=== PATIENT | female | born 1965 | race Asian ===

== ENCOUNTER 2016-05-30 21:11 | Emergency (ER) | payer OTHER ==
[2016-05-30] MEDS ORDERED: IOPAMIDOL-300 100 ML VIAL IVP ONE (22:18)
[2016-05-30] MEDS ORDERED: SULFAM/TRIM 800/160 Prepack 2 PO ONE ×2 (23:13→23:16)
[2016-05-30] MEDS ORDERED: SULFAMETH/TRIMETH DS 800/160 MG TABLET PO ONE (23:14)
== END 2016-05-30 23:32 | disposition home or self-care (01) ==
DX: I10 Essential (primary) hypertension (principal); I77.810 Thoracic aortic ectasia; N30.00 Acute cystitis without hematuria; E11.9 Type 2 diabetes mellitus without complications
CPT/HCPCS: 36415; 71275; 80053; 81001; 83690; 84484; 85025; 87086; 93005; 93010; 99284; Q9967

== ENCOUNTER 2017-10-21 07:42 | Outpatient (CLI) | payer OTHER ==
--- NOTE | 2017-10-23 09:20 | MRI Report ---
EXAM: MRI CERVICAL SPINE WITHOUT CONTRAST EXAM DATE: 10/21/2017 08:17 AM. CLINICAL HISTORY: Cervicalgia. COMPARISONS: None. TECHNIQUE: Multiplanar, multisequence T1-weighted and fluid-sensitive sequences of the cervical spine without contrast. Other: None. FINDINGS: There is straightening of the normal cervical lordosis. There is a mild degree desiccation of the dis k spaces from C2-C3 through T2-T3. There is a mild decrease in intervertebral disk space height at C4 -C5, C5-C6. There is a mild degree of endplate spondylosis. There are normal signal intensities demonstrated throughout the cervical spinal cord. The craniocervi davey junction is normal. C2-C3: There is a mild degree of left facet arthropathy. There is mild narrowing of the left neural f oramen. There is no significant disk bulge or central canal stenosis. C3-C4: There is a small disk osteophyte complex producing a mild central canal stenosis. The uncovert ebral hypertrophy produces moderate bilateral foraminal stenoses. C4-C5: There is no significant disk bulge, central or foraminal stenosis. The facets are normal. C5-C6: There is a small disk osteophyte complex producing a mild central canal stenosis. The uncovert ebral hypertrophy produces mild bilateral foraminal stenoses. The facets are normal. C6-C7: There is minimal central protrusion of the disk producing a minimal central canal stenosis. Th e remainder of the level is normal. C7-T1: There is a mild degree of left facet arthropathy. There is no significant disk bulge or centra l canal stenosis. There is mild narrowing of the left neural foramen. IMPRESSION: 1. There is a mild central canal stenosis from a small disk osteophyte complex at C3-C4. 2. There is a small disk osteophyte complex at C5-C6 producing a mild central canal stenosis. 3. There is a minimal central canal stenosis from a minimal central protrusion of the disk at C6-C7. Referring Provider Line: [phone] SITE ID: [id number]
== END 2017-10-21 07:43 | disposition home or self-care (01) ==
LOC: DI 07:42
PROVIDERS: ATTEND Family Medicine
DX: M50.223 Other cervical disc displacement at C6-C7 level (principal); M47.892 Other spondylosis, cervical region; M50.31 Other cervical disc degeneration, high cervical region; M48.02 Spinal stenosis, cervical region
CPT/HCPCS: 72141

== ENCOUNTER 2019-05-04 08:51 | Emergency (ER) | payer OTHER ==
[2019-05-04] MEDS ORDERED: DEXAMETHASONE 10 MG/ML VIAL PO STA ×2 (09:53→09:56)
[2019-05-04] MEDS ORDERED: CHERRY SYRUP 10 ML UDC PO ONE ×2 (09:53→09:56)
--- NOTE | 2019-05-04 09:56 | ED Physician Documentation ---
PD HPI URI - Stated complaint Stated Complaint: COUGH - Chief complaint Chief Complaint: Heent - History obtained from History obtained from: Patient - History of Present Illness Timing - onset: How many weeks ago (1) Timing duration: Weeks (1) Timing details: Abrupt onset, Still present Associated symptoms: Fever, Ear pain, Nasal congestion, Rhinorrhea, Sinus pain, Sore throat, Productive cough Improves by: Rest, Medication Similar symptoms before: Diagnosis (OM) Recently seen: Clinic - Additional information Additional information: 54-year-old female is developed a cough and congestion 1 week ago she is developing a cough with brown sputum she has had a rupture of the right TM she has been into see her primary care doctor and she has persistence of symptoms and now has pain into the left ear as well. She has had this previously she is had ear infection and sinus infection. She has not had to use inhaler. Review of Systems Constitutional: reports: Fever Eyes: denies: Decreased vision Ears: reports: Ear pain, Drainage/discharge Nose: reports: Rhinorrhea / runny nose, Congestion Throat: reports: Sore throat Cardiac: denies: Chest pain / pressure, Palpitations Respiratory: reports: Cough GI: denies: Vomiting PD PAST MEDICAL HISTORY - Past Medical History Cardiovascular: Hypertension Respiratory: None Neuro: None Endocrine/Autoimmune: None GI: GERD [employer]ULPAK DRIVER: None : None HEENT: None Psych: None Musculoskeletal: Chronic back pain Derm: None - Past Surgical History Past Surgical History: No - Present Medications Home Medications: Ambulatory Orders Medication Instructions Recorded Confirmed Zolpidem [Ambien] 5 mg PO HS PRN 12/11/12 05/04/19 Amox/Clav 875/125 [Augmentin] 1 each PO Q12H #20 tablet 05/04/19 Cholecalciferol (Vitamin D3) 2,000 unit PO DAILY 05/04/19 05/04/19 [Vitamin D3] Lactobacillus Acidophilus 1 tab ORAL DAILY 05/04/19 05/04/19 [Probiotic Acidophilus] Telmisartan [Micardis] 40 mg PO DAILY 05/04/19 05/04/19 - Allergies Allergies/Adverse Reactions: Allergies Allergy/AdvReac Type Severity Reaction Status Date / Time No Known Drug Allergies Allergy Verified 05/04/19 08:57 - Social History Does the pt smoke?: No Smoking Status: Never smoker Does the pt drink ETOH?: No Does the pt have substance abuse?: No - Immunizations Immunizations are current?: Yes - POLST Patient has POLST: No PD ED PE NORMAL - Vitals Vital signs reviewed: Yes (hyertensive mild ) - General General: Alert and oriented X 3, No acute distress, Well developed/nourished - HEENT HEENT: Atraumatic, PERRL, EOMI, Moist mucous membranes, Other (The right TM appears to have had a rupture that appears now sealed and there is some blood clot on the lower portion of the TM. The TM is inflamed with distortion of landmarks. 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, No motor deficit, No sensory deficit, Normal speech Eye Opening: Spontaneous Motor: Obeys Commands Verbal: Oriented GCS Score: 15 - Psych Psych: Normal mood, Normal affect Results - Vitals Vitals: Vital Signs - 24 hr 05/04/19 05/04/19 08:57 09:33 Temperature 37.2 C 37.3 C Heart Rate 80 71 Respiratory 18 18 Rate Blood Pressure 139/85 H 128/93 H O2 Saturation 96 98 Oxygen O2 Source Room air PD MEDICAL DECISION MAKING - ED course Complexity details: reviewed old records, considered differential, d/w patient, d/w family ED course: 54-year-old female with cough and congestion has otitis bilaterally she is had a rupture on the right she now has marked inflammation on the left she is administered dexamethasone 10 mg orally and we will place her on a course of Augmentin. Departure - Departure Disposition: 01 Home, Self Care Clinical Impression: Otitis media Qualifiers: Otitis media type: suppurative Chronicity: acute Laterality: bilateral Recurrence: not specified as recurrent Spontaneous tympanic membrane rupture: with spontaneous rupture Qualified Code(s): H66.013 - Acute suppurative otitis media with spontaneous rupture of ear drum, bilateral Condition: Stable Instructions: ED Otitis Media Acute Adult Follow-Up: YUE BOSS DO [Primary Care Provider] - Prescriptions: Amox/Clav 875/125 [Augmentin] 1 each PO Q12H #20 tablet
[2019-05-04 10:20] VITALS: BP 134/95
== END 2019-05-04 10:24 | disposition home or self-care (01) ==
LOC: ED 08:51
DX: H66.011 Acute suppurative otitis media with spontaneous rupture of ear drum, right ear (principal); H66.002 Acute suppurative otitis media without spontaneous rupture of ear drum, left ear; I10 Essential (primary) hypertension
CPT/HCPCS: 99282; 99284; A9270